=== PATIENT | male | born 1975 | race African-American/Black ===

== ENCOUNTER 2024-01-10 14:21 | Inpatient (IN) | payer MEDICAID, OTHER ==
[~2024-01-10] VITALS: Ht 182.9 cm; Wt 64.6 kg
[2024-01-10] MEDS: IV NS 0.9% 1,000 ML BAG IV ONE (14:47)
[2024-01-10 14:51] LABS: BASOPHILS % (AUTO) 0.3 % (0.0-2.0); HEMATOCRIT 43 % (39-51); HEMOGLOBIN 14.1 g/dL (13.5-17.5); LYMPHOCYTES # (AUTO) 0.8 K/uL (0.8-4.8); LYMPHOCYTES % (AUTO) 8.2 % (20.0-44.0); MEAN CORPUSCULAR HEMOGLOBIN 30 PG (26.0-33.0); MEAN CORPUSCULAR HGB CONC 33 g/dl (31.0-36.0); MEAN CORPUSCULAR VOLUME 89 fL (80-96); MONOCYTES # (AUTO) 1.1 K/uL (0.1-1.30); MONOCYTES % (AUTO) 10.5 % (2.0-12.0); NEUTROPHILS # (AUTO) 8.3 K/uL (1.8-8.9); PLATELET COUNT (AUTO) 104 K/uL (150-450); RED BLOOD CELL COUNT(AUTO) 4.78 MIL/uL (4.5-6.0); RED CELL DISTRIBUTION WIDTH 18.1 % (11.5-15.0); WHITE BLOOD COUNT (AUTO) 10.2 K/uL (4.3-11.0)
[2024-01-10 15:10] LABS: CALCIUM, SERUM 9.3 mg/dL (8.5-10.1); CARBON DIOXIDE 20 mmol/L (21-32); CHLORIDE 112 mmol/L (98-107); CREATININE 2.1 mg/dL (0.6-1.3); GLUCOSE 139 mg/dL (74-106); POTASSIUM 4.2 mmol/L (3.5-5.1); SODIUM SERUM 151 mmol/L (136-145); UREA NITROGEN, BLOOD 74 mg/dL (7-18)
[2024-01-10 15:11] LABS: SERUM AMMONIA 46 umol/L (11-32)
[2024-01-10 15:16] LABS: ALANINE AMINOTRANSFERASE 54 U/L (12-78); ALBUMIN 4.2 g/dL (3.4-5.0); ALKALINE PHOSPHATASE 47 U/L (46-116); ASPARTATE AMINOTRANSFERASE 198 U/L (15-37); BILIRUBIN,DIRECT 0.4 mg/dL (0.0-0.2); BILIRUBIN,TOTAL 1.4 mg/dL (0.2-1.0); TOTAL PROTEIN, SERUM 8.8 g/dL (6.4-8.2)
[2024-01-10 15:18] LABS: ALCOHOL, BLOOD < 3 mg/dL (0-10)
[2024-01-10 15:58] LABS: APPEARANCE,URINE CLEAR (CLEAR); BILIRUBIN,URINE NEGATIVE (NEGATIVE); BLOOD, URINE NEGATIVE Ery/uL (NEGATIVE); COLOR,URINE YELLOW (YELLOW); KETONES,URINE NEGATIVE (NEGATIVE); LEUKOCYTE ESTERASE ,URINE NEGATIVE (NEGATIVE); NITRITE, URINE NEGATIVE (NEGATIVE); PH,URINE 5.5 (5.0-8.0); PROTEIN,URINE NEGATIVE (NEGATIVE); UGLUCOSE NEGATIVE (NEGATIVE); UROBILINOGEN,URINE 0.2 EU/dL (0.2)
[2024-01-10 16:18] LABS: AMPHETAMINE, URINE NEGATIVE (NEGATIVE); BARBITURATE, URINE NEGATIVE (NEGATIVE); BENZODIAZEPINE, URINE NEGATIVE (NEGATIVE); CANNABINOID, URINE NEGATIVE (NEGATIVE); COCCAINE, URINE NEGATIVE (NEGATIVE); OPIATE, URINE NEGATIVE (NEGATIVE); PHENCYCLIDINE SCREEN,URINE NEGATIVE (NEGATIVE)
[2024-01-10] MEDS ORDERED: BLOO-668 IN (16:30)
[2024-01-10] MEDS ORDERED: ATOR20TA PO (16:30)
[2024-01-10] MEDS ORDERED: TAMS-12 PO (16:30)
[2024-01-10] MEDS ORDERED: CHLO100T24 PO (16:30)
[2024-01-10] MEDS ORDERED: BENZ1TAB7 PO (16:30)
[2024-01-10] MEDS ORDERED: CALC-167 PO (16:30)
[2024-01-10] MEDS ORDERED: TRAZ-257 PO (16:30)
[2024-01-10] MEDS ORDERED: LISI10TA29 PO (16:30)
[2024-01-10] MEDS ORDERED: DIVA-78 PO (16:30)
[2024-01-10] MEDS ORDERED: Z GUARD REMEDY 4 OZ OINT TP PRN (17:00)
[2024-01-10] MEDS ORDERED: MAG HYDROX/AL HYDROX/SIMETH 30 ML UDC PO PRN (17:00)
[2024-01-10] MEDS ORDERED: ACETAMINOPHEN 325 MG TABLET PO PRN (17:00)
[2024-01-10] MEDS ORDERED: ONDANSETRON HCL/PF 4 MG/2 ML VIAL IVP PRN (17:00)
[2024-01-10] MEDS ORDERED: MAGNESIUM HYDROXIDE 30 ML UDC PO PRN (17:00)
[2024-01-10] MEDS: IV 1/2NS 1000 ML 1,000 ML IV PRN (19:50)
[2024-01-10] MEDS: BENZTROPINE MESYLATE (1 MG) 1 MG TABLET PO SCH (19:52)
[2024-01-10 20:00] VITALS: BP 133/96; TEMP 97.5; O2SAT 100
[2024-01-10] MEDS: DIVALPROEX SODIUM 500 MG TABLET.DR PO SCH (21:26)
[2024-01-10] MEDS: TAMSULOSIN 0.4 MG CAP.SR.24H PO SCH (21:27)
[2024-01-11] VITALS: BP 131/96; TEMP 97.5; O2SAT 100
[2024-01-11 04:00] VITALS: BP 124/92; TEMP 97.4; O2SAT 100
[2024-01-11] MEDS ORDERED: LIDOCAINE 2% JEL UROJET 10 ML MM ONE (05:16)
[2024-01-11 07:00] VITALS: BP 130/91; TEMP 97.7; O2SAT 100
[2024-01-11] MEDS ORDERED: IV 1/2NS 1000 ML 1,000 ML IV PRN (09:30)
[2024-01-11] MEDS: LORAZEPAM INJ 2 MG/ML VIAL IM PRN (09:51)
[2024-01-11] MEDS: Sodium Bicarbonate 50 MEQ in IV 1/2NS 1000 ML 1,000 ML IV SCH (10:19)
[2024-01-11 11:42] LABS: BASOPHILS % (AUTO) 0.3 % (0.0-2.0); EOSINOPHILS % (AUTO) 0.4 % (0.0-6.0); HEMATOCRIT 38 % (39-51); HEMOGLOBIN 12.4 g/dL (13.5-17.5); LYMPHOCYTES # (AUTO) 0.9 K/uL (0.8-4.8); LYMPHOCYTES % (AUTO) 16.5 % (20.0-44.0); MEAN CORPUSCULAR HEMOGLOBIN 29 PG (26.0-33.0); MEAN CORPUSCULAR HGB CONC 33 g/dl (31.0-36.0); MEAN CORPUSCULAR VOLUME 88 fL (80-96); MONOCYTES # (AUTO) 0.5 K/uL (0.1-1.30); MONOCYTES % (AUTO) 9.3 % (2.0-12.0); NEUTROPHILS # (AUTO) 3.8 K/uL (1.8-8.9); NEUTROPHILS % (AUTO) 73.5 % (43.0-81.0); PLATELET COUNT (AUTO) 90 K/uL (150-450); RED BLOOD CELL COUNT(AUTO) 4.26 MIL/uL (4.5-6.0); RED CELL DISTRIBUTION WIDTH 17.5 % (11.5-15.0); WHITE BLOOD COUNT (AUTO) 5.2 K/uL (4.3-11.0)
[2024-01-11 11:55] LABS: CALCIUM, SERUM 8.1 mg/dL (8.5-10.1); CREATININE 0.9 mg/dL (0.6-1.3); MAGNESIUM 2.9 mg/dL (1.8-2.4); PHOSPHORUS 2.8 mg/dL (2.5-4.9); POTASSIUM 3.7 mmol/L (3.5-5.1)
[2024-01-11 12:12] LABS: PLATELET ESTIMATE DECREASED
[2024-01-11 12:13] LABS: ANISOCYTOSIS 1+; OVALOCYTES 1+
[2024-01-11 16:00] VITALS: BP 114/84; TEMP 97.3; O2SAT 98
[2024-01-11 20:18] VITALS: BP 115/88; TEMP 97.4; O2SAT 100
[2024-01-12 08:00] VITALS: BP 117/87; TEMP 98.2; O2SAT 99
[2024-01-12] MEDS: QUETIAPINE FUMARATE 100 MG TABLET PO SCH (10:29)
[2024-01-12 16:00] VITALS: BP 133/85; TEMP 98.5; O2SAT 100
[2024-01-12 20:00] VITALS: BP 108/71; TEMP 98.2; O2SAT 98
[2024-01-13 06:32] LABS: BASOPHILS % (AUTO) 0.1 % (0.0-2.0); EOSINOPHILS % (AUTO) 1.5 % (0.0-6.0); HEMATOCRIT 32 % (39-51); HEMOGLOBIN 10.9 g/dL (13.5-17.5); LYMPHOCYTES # (AUTO) 0.9 K/uL (0.8-4.8); MEAN CORPUSCULAR HEMOGLOBIN 30 PG (26.0-33.0); MEAN CORPUSCULAR HGB CONC 34 g/dl (31.0-36.0); MEAN CORPUSCULAR VOLUME 88 fL (80-96); MONOCYTES # (AUTO) 0.3 K/uL (0.1-1.30); MONOCYTES % (AUTO) 13.7 % (2.0-12.0); NEUTROPHILS # (AUTO) 0.8 K/uL (1.8-8.9); NEUTROPHILS % (AUTO) 39.7 % (43.0-81.0); PLATELET COUNT (AUTO) 84 K/uL (150-450); RED BLOOD CELL COUNT(AUTO) 3.68 MIL/uL (4.5-6.0); RED CELL DISTRIBUTION WIDTH 16.7 % (11.5-15.0); WHITE BLOOD COUNT (AUTO) 2.1 K/uL (4.3-11.0)
[2024-01-13 06:46] LABS: CALCIUM, SERUM 7.6 mg/dL (8.5-10.1); CREATININE 0.8 mg/dL (0.6-1.3); POTASSIUM 3.3 mmol/L (3.5-5.1)
[2024-01-13] MEDS: POTASSIUM CHLORIDE 20 MEQ TAB.PRT.SR PO SCH (10:35)
[2024-01-13 10:38] LABS: ANISOCYTOSIS 1+; BASOPHILS % (MANUAL) 0 % (0.0-2.0); EOSINOPHILS % (MANUAL) 1 % (0-4); LYMPHOCYTES % (MANUAL) 43 % (16-48); MONOCYTES % (MANUAL) 9 % (0-11.0); NEUTROPHILS % (MANUAL) 47 (42-76); PLATELET ESTIMATE DECREASED
[2024-01-13] MEDS: CEFTRIAXONE 2 G in IV D5W 100 ML IV SCH (14:44)
[2024-01-13] MEDS: IV NS 0.9% 1,000 ML IV PRN (14:44)
[2024-01-13 16:00] VITALS: BP 141/100; TEMP 98.6; O2SAT 97
[2024-01-13 17:11] LABS: LACTIC ACID 3.9 mmol/L (0.4-2.0)
[2024-01-13 19:40] LABS: BILIRUBIN,DIRECT 0.1 mg/dL (0.0-0.2); BILIRUBIN,TOTAL 0.3 mg/dL (0.2-1.0)
[2024-01-13 20:01] LABS: LACTIC ACID REFLEX 2.8 mmol/L (0.4-1.9)
[2024-01-13] MEDS: DOXYCYCLINE HYCLATE (100 MG) 100 MG TABLET PO SCH (20:19)
[2024-01-14] MEDS: QUETIAPINE FUMARATE 100 MG TABLET PO SCH (09:52)
[2024-01-14] MEDS ORDERED: QUET100T PO (12:26)
[2024-01-14] MEDS ORDERED: AMOX-430 PO (12:26)
== END 2024-01-14 17:35 | DRG 815 ==
LOC: EDBD 14:52 → ER 14:52 → MED 18:08 → TELE 19:26 → MED 01-11 10:07
PROVIDERS: ADMIT Internal Medicine; ATTEND Nurse Practitioner Family
DX: T67.01XA Heatstroke and sunstroke, initial encounter (principal); N17.0 Acute kidney failure with tubular necrosis; G93.41 Metabolic encephalopathy; E87.0 Hyperosmolality and hypernatremia; E87.20 Acidosis, unspecified; D69.6 Thrombocytopenia, unspecified; F20.0 Paranoid schizophrenia; M62.82 Rhabdomyolysis; F29 Unspecified psychosis not due to a substance or known physiological condition; E87.70 Fluid overload, unspecified; E86.0 Dehydration; E78.5 Hyperlipidemia, unspecified; E86.1 Hypovolemia; I10 Essential (primary) hypertension; Z20.822 Contact with and (suspected) exposure to COVID-19; X30.XXXA Exposure to excessive natural heat, initial encounter; Y93.9 Activity, unspecified; Y92.89 Other specified places as the place of occurrence of the external cause; N40.0 Benign prostatic hyperplasia without lower urinary tract symptoms; R74.01 Elevation of levels of liver transaminase levels; F39 Unspecified mood [affective] disorder; J40 Bronchitis, not specified as acute or chronic
CPT/HCPCS: 36415; 70450-TC; 71045-TC; 80048-TC; 80076-TC; 82140-TC; 82247-TC; 82248-TC; 82550-TC; 82553; 83605-TC; 83735-TC; 84100-TC; 84443-TC; 85025-TC; 87040-TC; 87081-TC; 97110-TC; 97116-TC; 97530-TC; 97535-TC; 98960; A4223; G0378; G0480; J0696; J2060; J3490; J7030; J7042; J7060